=== PATIENT | male | born 1940 | race Caucasian/White ===

== ENCOUNTER 2020-01-05 10:24 | Outpatient (REF) | payer MEDICARE, OTHER, SELFPAY ==
--- NOTE | 2020-01-05 11:19 | XR_ITS ---
EXAMINATION: XR HIP, RIGHT CLINICAL INFORMATION: Right hip pain. COMPARISON: Right hip radiographs dated 12/03/2019. TECHNIQUE: Two views of the right hip. FINDINGS: The patient is status post right hip/femoral ORIF showing good anatomic alignment with no evidence for hardware malfunction. Mild right hip degenerative joint changes are again noted. The right hemipelvis is intact. The soft tissues are unremarkable. Generalized osteopenia is seen. IMPRESSION: Generalized osteopenia and mild right hip osteoarthritis. No hardware abnormality. No acute fracture. No significant change.
[2020-01-05 12:29] LABS: Alanine Aminotransferase 28 U/L (0-40); Albumin Level 4.5 g/dL (3.5-5.0); Alkaline Phosphatase 94 U/L (39-117); Anion Gap 12 (12-20); Aspartate Amino Transferase 23 U/L (5-37); Bilirubin Total 0.5 mg/dL (0.0-1.0); Blood Urea Nitrogen 13 mg/dL (9-16); Calcium 9.8 mg/dL (8.4-10.2); Carbon Dioxide 26 mmol/L (22-29); Chloride 109 mmol/L (96-108); Estimated Glomerular Filt Rate > 60; Glucose Fasting 118 mg/dL (60-99); Potassium 4.3 mmol/l (3.3-5.1); Sodium 143 mmol/L (135-145); Total Protein 7.5 g/dL (6.5-8.0)
[2020-01-05 18:13] LABS: Cholesterol 131 mg/dL; HDL Cholesterol 53 mg/dL; LDL Cholesterol Calculated 65 mg/dl; Triglycerides 66 mg/dL
== END 2020-01-05 10:25 | disposition home or self-care (01) ==
LOC: HO.LAB 10:24
PROVIDERS: Visit Provider Internal Medicine
DX: M25.551 Pain in right hip (principal)
CPT/HCPCS: 36415; 73502; 80053; 80061

== ENCOUNTER → 2020-01-28 10:10 | Outpatient (BNVA) | payer MEDICARE, OTHER, SELFPAY | PROVIDERS: PCP Internal Medicine; Visit Provider Urology | DX: N40.1 Benign prostatic hyperplasia with lower urinary tract symptoms (principal); R35.0 Frequency of micturition; R39.12 Poor urinary stream; R35.1 Nocturia; Z79.899 Other long term (current) drug therapy | CPT/HCPCS: 81002; 99202 ==

== ENCOUNTER 2020-01-29 15:58 | Outpatient (REF) | payer MEDICARE, OTHER, SELFPAY | END 2020-01-29 15:59 | disposition home or self-care (01) | LOC: HO.LAB 15:58 | PROVIDERS: Visit Provider Internal Medicine | DX: Z20.828 Contact with and (suspected) exposure to other viral communicable diseases (principal) | CPT/HCPCS: 87635 ==

== ENCOUNTER 2020-02-19 11:00 | Outpatient (RCR) | payer MEDICARE, OTHER, SELFPAY ==
--- NOTE | 2020-02-19 14:08 | MHC.PT.DC ---
[facility] [place] [facility] [place] [facility] [place] [facility] [address] Raysa Acuña [address] [phone] F: [phone] F: [phone] F: [phone] F: [phone] Physical Therapy Discharge Report Diagnosis: S/P RIGHT SILVIA RIGHT ROTATOR CUFF DYSFUNCTION Date of Surgery: 06/19/19 Date of Evaluation: 09/25/19 Date of Discharge: 02/19/20 Treatments to Date: 31 Cancellations to Date: 1 No Shows to Date: 0 Discharge Status: Achieved Goals Improved Function Independent with HEP Discharge Summary: 02/19/20- Pt came in with no new complaints. He has achieved all goals set for him and is independent with all HEPs. Pt d/c from therapy today. Pt was in agreement with plan. No adverse response noted to any exercise. Electronically signed by: Shania hCristiansen DPT Please sign and return to therapist. Thank you for your referral.
== END 2020-03-12 10:53 | disposition other institution (70) ==
LOC: HO.PT 11:00
PROVIDERS: Visit Provider Physician Assistant
DX: S72.141D Displaced intertrochanteric fracture of right femur, subsequent encounter for closed fracture with routine healing (principal); S46.011A Strain of muscle(s) and tendon(s) of the rotator cuff of right shoulder, initial encounter
CPT/HCPCS: 97110; 97530

== ENCOUNTER 2020-02-25 13:31 | Outpatient (REF) | payer MEDICARE, OTHER, SELFPAY ==
--- NOTE | 2020-02-25 13:33 | US_ITS ---
EXAMINATION: US PELVIS LIMITED (BLADDER) CLINICAL INFORMATION: Poor urinary stream. COMPARISON: CT abdomen and pelvis 06/18/2019. TECHNIQUE: Real-time imaging of the bladder. FINDINGS: The bladder is symmetrically distended with no focal wall thickening or bladder diverticulum. There is no debris or bladder calculus. Right ureteral jet is noted with color Doppler. Left ureteral jet is not demonstrated. Bladder volume (full per patient): 101 mL. Post void bladder residual volume: 9 mL. Prostate is normal in size measuring measures 3.0 x 2.7 x 3.0 cm (volume 13 mL). US/US bladder IMPRESSION: 1. Bladder volume (full per patient): 101 mL. 2. Small post void bladder volume: 9 mL. 3. Prostate normal in size, 13 mL.
== END 2020-02-25 13:32 | disposition home or self-care (01) ==
LOC: HO.US 13:31
PROVIDERS: Visit Provider Urology
DX: R39.12 Poor urinary stream (principal); N40.0 Benign prostatic hyperplasia without lower urinary tract symptoms; Z12.5 Encounter for screening for malignant neoplasm of prostate
CPT/HCPCS: 76857

== ENCOUNTER 2020-03-04 14:55 | Emergency (ER) | payer MEDICARE, BC, SELFPAY ==
[2020-03-04 15:42] VITALS: BP 115/77; PULSE 88; RESP 15; TEMP 37.2; O2SAT 98; BMI 29.2
--- NOTE | 2020-03-04 17:03 | XR_ITS ---
EXAMINATION: XR ABDOMEN KUB CLINICAL INDICATION: Constipated COMPARISON: 06/18/2019 TECHNIQUE: AP view of the abdomen. FINDINGS: There is a nonobstructive bowel gas pattern. No dilated loops of bowel. Gas and stool throughout the colon with mild to moderate colonic stool burden. Stool in the rectum. The lung bases are clear. Degenerative changes of the spine and hips. Partial visualization of fixation hardware in the right femur. XR/XR KUB IMPRESSION: Nonobstructive bowel gas pattern. Mild to moderate colonic stool burden.
--- NOTE | 2020-03-04 17:04 | ED.GENADULT ---
HPI - General Adult General Chief complaint: General Medical Stated complaint: catheter problem Time Seen by Provider: 03/04/20 16:46 Source: patient Mode of arrival: ambulatory Limitations: no limitations History of Present Illness HPI narrative: Patient with history of constipation complaining of soft stool coming but not emptying completely no abdominal pain no diarrhea no nausea no vomiting no fever he denies any fever no abdominal distension Onset (ago): day(s) (3) Related Data Home Medications Medication Instructions Recorded Confirmed acetaminophen 500 mg tablet 500 mg PO Q6H PRN 01/05/20 01/05/20 alfuzosin 10 mg tablet,extended 10 mg PO DAILY 01/05/20 01/05/20 release 24 hr aspirin 81 mg tablet,delayed 81 mg PO DAILY 01/05/20 01/05/20 release atorvastatin 40 mg tablet 40 mg PO DAILY 01/05/20 01/05/20 oxybutynin chloride 10 mg 10 mg PO DAILY 01/05/20 01/05/20 tablet,extended release 24 hr Previous Rx's Medication Instructions Recorded calcium carbonate 600 mg calcium 600 mg PO BID 30 Days #60 tab 01/22/20 (1,500 mg) tablet cholecalciferol (vitamin D3) 25 25 mcg PO DAILY 30 Days #30 cap 01/22/20 mcg (1,000 unit) capsule docusate sodium [Colace] 100 mg PO DAILY PRN #20 cap 03/04/20 hydrocortisone [Proctocort] 1 appl TOPICAL BID PRN #30 g 03/04/20 terazosin 10 mg capsule 10 mg PO BEDTIME #30 cap 03/04/20 Allergies Allergy/AdvReac Type Severity Reaction Status Date / Time No Known Allergies Allergy Verified 01/05/20 09:28 [No Known Allergies*] Review of Systems Review of Systems: REVIEW OF SYSTEMS: Pertinent positives and negatives are stated above in the history. GEN: no fevers, chills, fatigue HEENT: no nasal congestion, sore throat, ear pain NEURO: no headache, dizziness, focal weakness PULM: no cough, shortness of breath CV: no chest pain, palpitations, LE edema ABD: no abdominal pain, nausea, vomiting, diarrhea : no dysuria, urgency, frequency SKIN: no rash ROS otherwise negative x 10 PMFSH Past Medical History Medical History BPH (benign prostatic hyperplasia) Osteopenia Pure hypercholesterolemia Right hip pain Urinary incontinence due to benign prostatic hyperplasia Surgical History History of hip surgery Family History Family History Father No problems noted. Mother No problems noted. Social History Social History Alcohol intake: unknown Smoking Status: Unknown if ever smoked Use of substances other than those prescribed or required for medical reasons: No Advance Directives: No Advance Directives Information Provided: No Physical Exam Vital Signs: Vital Signs: Last Vital Signs Temp 99.0 F 03/04/20 15:42 Pulse 76 03/04/20 18:39 Resp 18 03/04/20 18:39 BP 109/63 03/04/20 18:39 Pulse Ox 99 03/04/20 18:39 Body Mass Index 29.2 Appearance: Alert. Oriented X3. No acute distress. Eyes: Pupils equal, round and reactive to light. ENT: Pharynx normal. Neck: Normal inspection. Neck supple. CVS: Normal heart rate and rhythm. Pulses normal. Respiratory: No respiratory distress. Breath sounds normal. Abdomen: Soft and nontender. Bowel sounds are present no hepatosplenomegaly Rectal exam: Soft well formed brown stool rectal tone is normal Skin: Skin warm and dry. Normal skin color. Normal skin turgor. Extremities: No lower extremity edema. Good range of movement Neuro: Oriented X 3. No motor deficit. No sensory deficit. Discharge Plan Discharge Clinical Impression: Constipation Qualifiers: Constipation type: slow transit constipation Qualified Code(s): K59.01 - Slow transit constipation Patient Disposition: Home, Self-Care Instructions: Constipation (ED) Additional Instructions: Drink Plenty of fluids Stool softener as advised Prescriptions: New docusate sodium [Colace] 100 mg capsule 100 mg PO DAILY PRN (Reason: constipation) Qty: 20 RF: 0 hydrocortisone [Proctocort] 1 % cream 1 appl topical BID PRN (Reason: itching) Qty: 30 RF: 0 No Action calcium carbonate 600 mg calcium (1,500 mg) tablet 600 mg PO BID 30 Days Qty: 60 RF: 11 cholecalciferol (vitamin D3) 25 mcg (1,000 unit) capsule 25 mcg PO DAILY 30 Days Qty: 30 RF: 11 terazosin 10 mg capsule 10 mg PO BEDTIME Qty: 30 RF: 6 oxybutynin chloride 10 mg tablet extended release 24hr 10 mg PO DAILY RF: 0 atorvastatin 40 mg tablet 40 mg PO DAILY RF: 0 alfuzosin 10 mg tablet extended release 24 hr 10 mg PO DAILY RF: 0 acetaminophen [Tylenol Extra Strength] 500 mg tablet 500 mg PO Q6H PRNRF: 0 aspirin 81 mg tablet,delayed release (DR/EC) 81 mg PO DAILY RF: 0 Interventions: ED Discharge Assessment Last Done: 03/04/20 19:20 Discharge Date/Time: 03/04/20 19:21 Print Language: Scottish
[2020-03-04] MEDS: bisacodyL 5 MG TABLET.DR 10 MG PO (17:36)
[2020-03-04] MEDS: Milk of Magnesia 30 ML ORAL.SUSP PO (17:36)
[2020-03-04 18:39] VITALS: BP 109/63; PULSE 76; RESP 18; O2SAT 99
== END 2020-03-04 19:21 | disposition home or self-care (01) ==
PROVIDERS: Emergency Provider Internal Medicine
DX: K59.01 Slow transit constipation (principal)
CPT/HCPCS: 74018; 99283; 99284

== ENCOUNTER → 2020-03-18 10:36 | Outpatient (BNVA) | payer MEDICARE, OTHER, SELFPAY | PROVIDERS: PCP Nurse Practitioner Family; Visit Provider Urology | DX: N40.1 Benign prostatic hyperplasia with lower urinary tract symptoms (principal); R35.1 Nocturia; R39.15 Urgency of urination | CPT/HCPCS: Q3014 ==

== ENCOUNTER 2020-12-31 09:49 | Emergency (ER) | payer MEDICARE, BC, SELFPAY ==
--- NOTE | ~2020-12-31 | XR_ITS ---
EXAMINATION: XR HAND, RIGHT CLINICAL INFORMATION: Fall, trauma, pain COMPARISON: None TECHNIQUE: PA, lateral, and oblique views of the right hand. FINDINGS: There is mild osteopenia. There is no visible fracture, dislocation, destructive process. The ulnar variance is neutral. There is no focal joint narrowing or erosive change. There is some atherosclerotic calcifications vasculature. XR/XR hand RT 2V IMPRESSION: No visible fracture or dislocation.
[2020-12-31 09:55] VITALS: BP 112/60; PULSE 86; RESP 16; TEMP 36.8; O2SAT 95; BMI 29.2
--- NOTE | 2020-12-31 10:40 | ED.FALL ---
HPI - Fall General Chief Complaint: Extremity Problem Stated Complaint: rt hand pain Time Seen by Provider: 12/31/20 10:40 Source: patient Mode of arrival: ambulatory Limitations: no limitations History of Present Illness HPI Narrative: 80 y/o male presenting to the ER with right hand pain that started last night at 5pm after he tripped and fell onto his hand. He reports stepping up one step outside without using his cane and he fell. He fell onto his left forearm and right hand. He did not hit his head or lose consciousness. He reports the pain in his right hand woke him up out of sleep. He reports the pain is located in the proximal hand near the wrist. It is swollen. He has not taken any medications for pain. He denies numbness or tingling. MD complaint: fall Onset (ago): day(s) (1) Fall from: standing Fall witnessed: yes, by family Place fall occurred: home Loss of consciousness: none Prolonged down time: no Symptoms prior to fall: none Context: tripped/slipped Location of injury - extremities: left: forearm and right: hand Severity: severe Severity scale (1-10): 10 Quality: sharp and aching Associated symptoms (after fall): denies Related Data Home Medications Medication Instructions Recorded Confirmed acetaminophen 500 mg tablet 500 mg PO Q6H PRN 01/05/20 01/05/20 (Tylenol Extra Strength) alfuzosin 10 mg tablet,extended 10 mg PO DAILY 01/05/20 01/05/20 release 24 hr aspirin 81 mg tablet,delayed 81 mg PO DAILY 01/05/20 01/05/20 release atorvastatin 40 mg tablet 40 mg PO DAILY 01/05/20 01/05/20 oxybutynin chloride 10 mg 10 mg PO DAILY 01/05/20 01/05/20 tablet,extended release 24 hr calcium carbonate 600 mg calcium 600 mg PO BID 03/08/20 (1,500 mg) tablet (Calcium) cholecalciferol (vitamin D3) 100 1,000 mcg PO DAILY cap 03/08/20 mcg (4,000 unit) capsule (Vitamin D3) Previous Rx's Medication Instructions Recorded calcium carbonate 600 mg calcium 600 mg PO BID 30 Days #60 tab 01/22/20 (1,500 mg) tablet cholecalciferol (vitamin D3) 25 25 mcg PO DAILY 30 Days #30 cap 10/22/20 mcg (1,000 unit) capsule docusate sodium 100 mg capsule 100 mg PO DAILY PRN #20 cap 03/04/20 (Colace) hydrocortisone 1 % topical cream 1 appl TOPICAL BID PRN #30 g 03/04/20 (Proctocort) meclizine 25 mg tablet 25 mg PO DAILY PRN #30 tab 03/08/20 polyethylene glycol 3350 17 17 g PO DAILY PRN #119 g 03/08/20 gram/dose oral powder (Miralax) bisacodyl 10 mg/30 mL enema (Fleet 10 mg FL ONCE PRN #30 ml 03/12/20 Bisacodyl) terazosin 10 mg capsule 10 mg PO BEDTIME #30 cap 03/18/20 ibuprofen 600 mg tablet 600 mg PO Q8H PRN #7 tab 12/31/20 tramadol 50 mg tablet 50 mg PO BID PRN #5 tab 12/31/20 Allergies Allergy/AdvReac Type Severity Reaction Status Date / Time No Known Allergies Allergy Verified 04/27/20 07:34 [No Known Allergies*] Review of Systems Review of Systems: Constitutional: No Fever, No Chills Cardiovascular: No Chest Pain, No SOB Gastrointestinal: No Nausea, No Vomiting, No abdominal Pain Musculoskeletal: + joint pain, No Myalgias Skin: + Skin Lesions, No rash Neuro: No Weakness, No Numbness, No Dizziness, No Headache Heme/Lymph: No Bruising, No Lymphadenopathy PMFSH Past Medical History Medical History (Updated 12/31/20 @ 11:07 by TIMOTEO Jaime) BPH (benign prostatic hyperplasia) Colonoscopy planned Constipation Osteopenia Pure hypercholesterolemia Right hip pain Stool incontinence Urinary incontinence due to benign prostatic hyperplasia Vertigo Surgical History History of hip surgery Family History Family History Father No problems noted. Mother No problems noted. Social History Social History Alcohol intake: unknown Advance Directives: No Physical Exam Vital Signs: Vital Signs: Last Vital Signs Temp 98.2 F 12/31/20 09:55 Pulse 86 12/31/20 09:55 Resp 16 12/31/20 09:55 BP 112/60 12/31/20 09:55 Pulse Ox 95 12/31/20 09:55 Body Mass Index 29.2 Appearance: Alert. Oriented X3. No acute distress. HEENT: normal inspection CVS: Normal heart rate and rhythm. Pulses normal. Respiratory: No respiratory distress. Skin: Skin warm and dry. Normal skin color. Normal skin turgor. No rashes. Extremities: right dorsal hand with mild swelling, tenderness over proximal hand without crepitus, no ecchymosis, no scaffoid tenderness, normal automotive parts counter person strength, normal active and passive ROM of the right wrist, NV intact distally. Neuro: Oriented X 3. No motor deficit. No sensory deficit. Course Course Course Narrative: 80 y/o male presenting with right hand pain s/p mechanical fall last evening. Slight swelling of dorsal hand with tenderness proximally, possible hand fracutre vs sprain. No snuff box tenderness. XR pending . Reevaluation(s) Reevaluation #1: XR negative for acute fracture. Will treat for sprain and have him follow up with his doctor. Stable for d/c home. Discharge Plan Discharge Clinical Impression: Sprain of wrist, right Qualifiers: Encounter type: initial encounter Qualified Code(s): S63.501A - Unspecified sprain of right wrist, initial encounter Patient Disposition: Home, Self-Care Instructions: Wrist Sprain (ED) Additional Instructions: Your xx-ray today was normal. Recommend wearing the MARCELLO wrap for support and compression. Elevate your hand whenever possible and use ice several times per day. Take the prescribed medications as needed for pain. Tramadol is a narcotic medication - it can make you drowsy, do not drive after taking this medication. Use your cane at all times when you are walking. Follow up with your doctor. Prescriptions: New ibuprofen 600 mg tablet 600 mg PO Q8H PRN (Reason: pain) Qty: 7 RF: 0 tramadol 50 mg tablet 50 mg PO BID PRN (Reason: pain) Qty: 5 RF: 0 No Action calcium carbonate 600 mg calcium (1,500 mg) tablet 600 mg PO BID 30 Days Qty: 60 RF: 11 cholecalciferol (vitamin D3) 25 mcg (1,000 unit) capsule 25 mcg PO DAILY 30 Days Qty: 30 RF: 11 docusate sodium [Colace] 100 mg capsule 100 mg PO DAILY PRN (Reason: constipation) Qty: 20 RF: 0 hydrocortisone [Proctocort] 1 % cream 1 appl topical BID PRN (Reason: itching) Qty: 30 RF: 0 oxybutynin chloride 10 mg tablet extended release 24hr 10 mg PO DAILY RF: 0 atorvastatin 40 mg tablet 40 mg PO DAILY RF: 0 alfuzosin 10 mg tablet extended release 24 hr 10 mg PO DAILY RF: 0 acetaminophen [Tylenol Extra Strength] 500 mg tablet 500 mg PO Q6H PRNRF: 0 aspirin 81 mg tablet,delayed release (DR/EC) 81 mg PO DAILY RF: 0 calcium carbonate [Calcium 600] 600 mg calcium (1,500 mg) tablet 600 mg PO BID RF: 0 Vitamin D3 100 mcg (4,000 unit) capsule 1,000 mcg PO DAILY RF: 0 polyethylene glycol 3350 [Miralax] 17 gram/dose powder 17 g PO DAILY PRN (Reason: constipation) Qty: 119 RF: 0 meclizine 25 mg tablet 25 mg PO DAILY PRN (Reason: motion sickness) Qty: 30 RF: 0 Fleet Bisacodyl 10 mg/30 mL enema 10 mg FL ONCE PRN (Reason: constipation) Qty: 30 RF: 0 terazosin 10 mg capsule 10 mg PO BEDTIME Qty: 30 RF: 6 Referrals: Sarah Pendleton MD [Primary Care Provider] - 3 days Interventions: ED Discharge Assessment Last Done: 12/31/20 11:15 Discharge Date/Time: 12/31/20 11:16 Print Language: Welsh
== END 2020-12-31 11:16 | disposition home or self-care (01) ==
PROVIDERS: Emergency Provider Emergency Medicine; PCP Internal Medicine
DX: S63.501A Unspecified sprain of right wrist, initial encounter (principal); M25.531 Pain in right wrist; W01.0XXA Fall on same level from slipping, tripping and stumbling without subsequent striking against object, initial encounter; Y93.9 Activity, unspecified; Y92.9 Unspecified place or not applicable; Y99.9 Unspecified external cause status; Z79.899 Other long term (current) drug therapy
CPT/HCPCS: 73120; 99283

== ENCOUNTER → 2021-02-08 10:13 | Outpatient (BNVA) | payer MEDICARE, OTHER, SELFPAY | PROVIDERS: PCP Internal Medicine; Visit Provider Urology | DX: R39.15 Urgency of urination (principal); R35.1 Nocturia; N32.0 Bladder-neck obstruction | CPT/HCPCS: 51798; 99212 ==

== ENCOUNTER 2021-02-18 09:43 | Outpatient (REF) | payer MEDICARE, BC, SELFPAY ==
--- NOTE | ~2021-02-18 | XR_ITS ---
EXAMINATION: XR HIP, RIGHT CLINICAL INFORMATION: Pain. COMPARISON: 01/05/2020. TECHNIQUE: AP view of the pelvis and 2 views of the right hip were obtained. FINDINGS: Redemonstration of a dynamic hip screw and intramedullary femoral ayanna without evidence of hardware failure or malalignment. Unchanged displaced greater and lesser trochanteric fracture fragments. Femoral heads are well-seated in the acetabula. No new injuries. Mild to moderate bilateral osteoarthritis in both hips. XR/XR hip RT w PEL1V IMPRESSION: No hardware failure. No acute fracture. No significant interval change.
== END 2021-02-18 09:44 | disposition home or self-care (01) ==
LOC: HO.HOSX 09:43
PROVIDERS: Visit Provider Physician Assistant
DX: M70.61 Trochanteric bursitis, right hip (principal); M54.10 Radiculopathy, site unspecified; M54.50 Low back pain, unspecified
CPT/HCPCS: 20610; 73502; 99212; J1040

== ENCOUNTER 2021-03-11 10:46 | Outpatient (REF) | payer MEDICARE, OTHER, SELFPAY ==
--- NOTE | ~2021-03-11 | XR_ITS ---
EXAMINATION: XR FEMUR, RIGHT CLINICAL INFORMATION: Postprocedure COMPARISON: 02/18/2021 TECHNIQUE: AP and lateral views of the right femur were obtained. FINDINGS: No change in position of fracture fragments about the left hip. The hardware is unchanged in position. There is no evidence for hardware failure. Silviano extends to the femur. XR/XR femur RT 2V IMPRESSION: No change position of silviano and screw associated with the right hip. No acute finding.
== END 2021-03-11 10:47 | disposition home or self-care (01) ==
LOC: HO.HOSX 10:46
PROVIDERS: PCP Internal Medicine; Visit Provider Orthopaedic Surgery
DX: M25.551 Pain in right hip (principal); Z98.890 Other specified postprocedural states
CPT/HCPCS: 73552; 99212

== ENCOUNTER 2021-04-06 09:41 | Day surgery (SDC) | payer MEDICARE, BC, SELFPAY ==
--- NOTE | 2021-04-05 09:34 | P.CONAN_ITS ---
Documented by User: Shadia Mcgee NP 04/05/21 09:40 HPI - Anesthesia Eval Consult details Narrative: 80yo M for Right Removal Orthopedic Hip Hardware s/p gamma nailing 05/2020 with GA-LMA 5 PMFSH Active Problems Active Problems: All Active Problems (Updated 03/17/21 @ 12:19 by Antonio Keyes MD) Retained orthopedic hardware (Acute) History of hip surgery (Acute) Greater trochanteric bursitis of right hip (Acute) Radiculopathy (Acute) Low back pain (Acute) Bladder outlet obstruction (Acute) Urinary urgency (Acute) Nocturia more than twice per night (Acute) Stool incontinence (Acute) Colonoscopy planned (Acute) Vertigo (Acute) Constipation (Acute) Osteopenia (Acute) BPH (benign prostatic hyperplasia) (Acute) Urinary incontinence due to benign prostatic hyperplasia (Acute) Pure hypercholesterolemia (Acute) Right hip pain (Acute) Past Medical History Medical History BPH (benign prostatic hyperplasia) Colonoscopy planned Constipation Osteopenia Pure hypercholesterolemia Right hip pain Stool incontinence Urinary incontinence due to benign prostatic hyperplasia Vertigo Family History Family History Father No problems noted. Mother No problems noted. Surgical History Surgical History (Updated 04/06/21 @ 10:22 by Preethi Ivey RN) History of hip surgery Hx of bilateral cataract extraction Social History Social History (Updated 03/11/21 @ 12:26 by Jamari Banegas) Alcohol intake: unknown Patient Tobacco Use Status: Never used Tobacco Use of substances other than those prescribed or required for medical reasons: No Are you DNR?: No Advance Directives: No Advance Directives Information Provided: Yes Current occupational status: retired Current occupation: rt handed Meds Allergies Allergy/AdvReac Type Severity Reaction Status Date / Time No Known Allergies Allergy Verified 04/06/21 10:22 [No Known Allergies*] Home Medications Medication Instructions Recorded Confirmed Last Taken Type acetaminophen 500 mg tablet 500 mg PO Q6H PRN 01/05/20 02/08/21 Unknown History (Tylenol Extra Strength) aspirin 81 mg tablet,delayed 81 mg PO DAILY 01/05/20 02/08/21 Unknown History release atorvastatin 40 mg tablet 40 mg PO DAILY 01/05/20 02/08/21 Unknown History calcium carbonate 600 mg calcium 600 mg PO BID 03/08/20 02/08/21 Unknown History (1,500 mg) tablet (Calcium) cholecalciferol (vitamin D3) 100 1,000 mcg PO DAILY cap 03/08/20 02/08/21 Unknown History mcg (4,000 unit) capsule (Vitamin D3) cholecalciferol (vitamin D3) 25 25 mcg PO DAILY 02/08/21 02/08/21 Unknown History mcg (1,000 unit) tablet (Vitamin D3) ipratropium bromide 42 mcg (0.06 INTRANASAL 02/08/21 02/08/21 Unknown History %) nasal spray Exam Exam Date and Time: April 05, [id number] Assessment and Plan Assessment Anesthesia Assessment: Chart Reviewed Documented by User: Alfredo Bliss MD 04/06/21 11:34 [facility] Past Medical History Medical History BPH (benign prostatic hyperplasia) Colonoscopy planned Constipation Osteopenia Pure hypercholesterolemia Right hip pain Stool incontinence Urinary incontinence due to benign prostatic hyperplasia Vertigo Family History Family History Father No problems noted. Mother No problems noted. Family history of problems with anesthesia: No Surgical History Surgical History (Updated 04/06/21 @ 10:22 by Preethi Ivey RN) History of hip surgery Hx of bilateral cataract extraction History of Problems with Anesthesia: No Social History Social History (Updated 03/11/21 @ 12:26 by Jamari Banegas) Alcohol intake: unknown Patient Tobacco Use Status: Never used Tobacco Use of substances other than those prescribed or required for medical reasons: No Are you DNR?: No Advance Directives: No Advance Directives Information Provided: Yes Current occupational status: retired Current occupation: rt handed Meds Allergies Allergy/AdvReac Type Severity Reaction Status Date / Time No Known Allergies Allergy Verified 01/05/22 10:22 [No Known Allergies*] Home Medications Medication Instructions Recorded Confirmed Last Taken Type acetaminophen 500 mg tablet 500 mg PO Q6H PRN 01/05/20 02/08/21 Unknown History (Tylenol Extra Strength) aspirin 81 mg tablet,delayed 81 mg PO DAILY 01/05/20 02/08/21 Unknown History release atorvastatin 40 mg tablet 40 mg PO DAILY 01/05/20 02/08/21 Unknown History calcium carbonate 600 mg calcium 600 mg PO BID 03/08/20 02/08/21 Unknown History (1,500 mg) tablet (Calcium) cholecalciferol (vitamin D3) 100 1,000 mcg PO DAILY cap 03/08/20 02/08/21 Unknown History mcg (4,000 unit) capsule (Vitamin D3) cholecalciferol (vitamin D3) 25 25 mcg PO DAILY 02/08/21 02/08/21 Unknown History mcg (1,000 unit) tablet (Vitamin D3) ipratropium bromide 42 mcg (0.06 INTRANASAL 02/08/21 02/08/21 Unknown History %) nasal spray Exam Airway Mallampati Class: II TM Dist: >3cm Neck ROM: Full Loose/Missing/Broken Teeth: No Heart: [id number] Lungs: cta b/l Assessment and Plan Assessment Anesthesia Assessment: Anesthesia Plan Discussed Final Anesthetic Review Family History of Problems with Anesthesia: No History of Problems with Anesthesia: No NPO: Yes ASA Class: III Final Preanesthetic Review: No Changes in Pt Med Stat, Meds/Allgs Chart Reviewed, Consent Obtained/Reviewed and Anes Risks/Benef Reviewed Patient Risk: Intermediate Procedure Risk: Intermediate Assessment/Block/Sedation in SS: Assess/Block/Sedation-SS Anesthetic Plan Anesthetic Plan: GA and Agree w/ Assess. and Plan Disposition: Standard PACU
[2021-04-06] VITALS (11 sets, daily range): BP systolic 119–133; BP diastolic 62–80; PULSE 66–77; RESP 16–20; TEMP 36.6–36.9; O2SAT 92–99; BMI 29.2
--- NOTE | ~2021-04-06 | FL_ITS ---
EXAMINATION: XR FL WITH IMAGES CLINICAL INFORMATION: Removal of orthopedic hardware, right hip. COMPARISON: 03/11/2021 TECHNIQUE: Fluoroscopy performed by Dr. Antonio Keyes. Fluoroscopy Time: 0.8 minutes. DAP: 0.423 mGycm2. Images: 2. FINDINGS: 2 intraoperative C-arm views provided. Since previous study, the screw within the right femoral neck has been removed. The proximal portion of the medullary ayanna is included on imaging and remains in place. No change in hypertrophic bone and healed fracture appearance. FL/FL guidance in OR IMPRESSION: Removal of right femoral neck screw.
--- NOTE | 2021-04-06 10:41 | MHC.SHP ---
Pre-Procedural Eval Section A Date of Service: 04/06/21 The patient is an INPATIENT: No Changes since office visit: Yes Patient answered all questions; No Cold of Flu in the past 2 weeks, No New Medical Problems and No Changes in Medication The History & Physical has been completed within 30 days and I have reviewed it.: Yes Section B Chief Complaint: Other post procedural states Allergies: Allergies Allergy/AdvReac Type Severity Reaction Status Date / Time No Known Allergies Allergy Verified 04/06/21 10:22 [No Known Allergies*] Plan I have reviewed the history and physical and performed a pertinent physical examination on my patient. No changes have occurred unless specified.
[2021-04-06] MEDS: Lactated Ringers 1,000 ML 100 ML IVCONT (10:43)
--- NOTE | 2021-04-06 12:03 | PM.OP ---
Brief Operative Note Date of Service: 04/06/21 Pre-op diagnosis: Retained orthopaedic hardware right hip Post-op diagnosis: same Procedure: removal of hardware right hip Surgeon: Antonio Keyes MD Anesthesia: GETA and local Was an Pets Salesperson used for this Procedure?: Yes Pets Salesperson: Sophie Murphy Estimated blood loss (mL): 50 IV fluids (mL): 800 Pathology: none sent Condition: stable Disposition: PACU
--- NOTE | 2021-04-06 13:30 | PC.NURSE ---
while assessing wound prior to discharge this RN noted the right hip distal dressing was off and saturated with blood and hematoma developing. New dressing and Ice applied. Dr. Edgar and Sophie MAHMOOD notified. MARCELLO wrap applied for pressure will continue to monitor.
--- NOTE | 2021-04-13 11:59 | P.OP_ITS ---
Operative Note Operative Note Date of Service: 04/06/21 Narrative: Date of Service: 04/06/21 Pre-op diagnosis: Retained orthopaedic hardware right hip Post-op diagnosis: same Procedure: removal of hardware right hip Surgeon: Antonio Keyes MD Anesthesia: GETA and local Was an Furnace Charging Machine Operator used for this Procedure?: Yes Furnace Charging Machine Operator: Sophie Murphy Estimated blood loss (mL): 50 IV fluids (mL): 800 Pathology: none sent Condition: stable Disposition: PACU Patient was brought to the operating room and placed supine on the surgical table. The limb was prepped and draped in standard sterile fashion and a time out was called to identify proper site, proper procedure and IV antibiotics per weight were administered. I began by making a small sivakumar incision over the lateral femur. A Megan clamp was used to spread the soft tissues overlying the prominent lateral hip screw. I then placed a screwdriver and with biplanar fluoroscopy was able to engage the screwdriver and the hip screw threads and this was locked in place. I was unable to remove the screw though as set screw was in place OA incision was made proximal to the nail and again blunt dissection was taken down to the nail and a flexible screwdriver was placed in this set screw was engaged and then unscrewed partially in till I was able to remove the hip screw. The hip screw was removed without difficulty. I then obtained biplanar fluoroscopic views and took the hip through range of motion was satisfied that this was fully healed. I then irrigated copiously and closed the incisions with absorbable 2-0 Vicryl and aster. Patient was placed in sterile dressing extubated brought to recovery room in stable condition. There were no known complications.
== END 2021-04-06 15:12 | disposition home or self-care (01) ==
PROVIDERS: PCP Internal Medicine; Visit Provider Orthopaedic Surgery
PROC: (CPT 20680; principal; 2021-04-06 11:50)
DX: T84.84XA Pain due to internal orthopedic prosthetic devices, implants and grafts, initial encounter (principal); M25.551 Pain in right hip; Y79.3 Surgical instruments, materials and orthopedic devices (including sutures) associated with adverse incidents; Y92.9 Unspecified place or not applicable; Z96.9 Presence of functional implant, unspecified; Z98.890 Other specified postprocedural states; R26.2 Difficulty in walking, not elsewhere classified; Z87.81 Personal history of (healed) traumatic fracture; M85.80 Other specified disorders of bone density and structure, unspecified site; E78.00 Pure hypercholesterolemia, unspecified; N40.1 Benign prostatic hyperplasia with lower urinary tract symptoms; N39.498 Other specified urinary incontinence; R42 Dizziness and giddiness
CPT/HCPCS: 20680; C1713; J0690; J1100; J1170; J2405; J3010

== ENCOUNTER → 2021-04-14 09:55 | Outpatient (BNVA) | payer MEDICARE, OTHER, SELFPAY | PROVIDERS: PCP Internal Medicine; Visit Provider Physician Assistant | DX: M12.811 Other specific arthropathies, not elsewhere classified, right shoulder (principal); Z96.9 Presence of functional implant, unspecified | CPT/HCPCS: 99212 ==

== ENCOUNTER → 2021-04-20 13:01 | Outpatient (BNVA) | payer MEDICARE, OTHER, SELFPAY | PROVIDERS: PCP Internal Medicine; Visit Provider Anesthesiology | DX: M25.551 Pain in right hip (principal); Z96.9 Presence of functional implant, unspecified | CPT/HCPCS: 99202 ==

== ENCOUNTER 2021-04-25 13:46 | Outpatient (REF) | payer MEDICARE, OTHER, SELFPAY | END 2021-04-25 13:47 | disposition home or self-care (01) | LOC: HO.MRI 13:46 | PROVIDERS: Visit Provider Physician Assistant | DX: Z13.89 Encounter for screening for other disorder (principal) ==

== ENCOUNTER → 2021-05-16 12:57 | Outpatient (BNVA) | payer MEDICARE, OTHER, SELFPAY | PROVIDERS: PCP Internal Medicine; Visit Provider Orthopaedic Surgery | DX: M12.811 Other specific arthropathies, not elsewhere classified, right shoulder (principal) | CPT/HCPCS: 99212 ==

== ENCOUNTER 2021-06-27 12:00 | Outpatient (RCR) | payer MEDICARE, OTHER, SELFPAY ==
--- NOTE | 2021-06-07 15:09 | MHC.PT.EP ---
[facility] [place] Office [place] Office [place] Office [address] Rays[place] Acuña [address] [phone] F: [phone] F: [phone] F: [phone] F: [phone] Physical Therapy Plan of Care Date of Evaluation: Date of Surgery: N/A Diagnosis: right shoulder rotator cuff arthropathy Assessment: pt presents to physical therapy after a mechanical fall resulting in a complete supraspinatus tear of his dominant arm. He would like to pursue non-operative management at this time to see if he can improve his function. I discussed w/ the pt that he most likely will not regain much motion of his arm given the nature of his tear. Realistic expectations were attempted to be set w/ the pt; however, he did not verbalized understanding. pt presents to physical therapy with pain, decreased range of motion, decreased strength, impaired functional mobility, impaired postural awareness, and gait deviations. pt is a fair candidate for skilled PT due to age, potential remediation of impairments, typical disease/condition progression and prognosis, comorbidities, and motivation. pt would benefit from tailored strengthening and stretching exercise program, functional training, gait training, postural re-training, neuromuscular re-education, modalities as needed for pain, equipment safety demonstration. Frequency and Duration: The patient will be seen 2x/wk for 6 wks Short Term Goals: pt will be I w/ HEP to promote self-management of condition. pt will improve R shoulder flexion by 10 degrees to promote ease in reaching for cooking utensils in higher cabinets for meal prep. Professor Of Violin Goals: pt will improve R shoulder functional ER to at least top of head to promote ease and independence w/ ADLs. pt will be I w/ donning/doffing shirt/jacket to reduce caregiver burden and promote independence. Treatment Plan: Modalities to reduce pain, spasms and effusion. Manual therapy to restore motion and function. Therapeutic exercise to improve strength and flexibility. Neuromuscular re-education for posture and balance. Therapeutic activities to return to functional activities of daily living. Electronically signed by: Eufemia Ballard PT, DPT Please sign and return to therapist. Thank you for your referral.
--- NOTE | 2021-07-27 13:38 | MHC.PT.DC ---
[facility] [place] Office [place] Office [place] Office [address] [place]ays[place] Acuña [address] [facility] [phone] F: [phone] F: [phone] F: [phone] F: [phone] Physical Therapy Discharge Report Diagnosis: right shoulder rotator cuff arthropathy Date of Surgery: N/A Date of Evaluation: 06/07/21 Date of Discharge: 07/27/21 Treatments to Date: 7 Cancellations to Date: 4 No Shows to Date: 1 Discharge Status: Recommend MD Follow-up Discharge Summary: The patient was reporting an improvement in his shoulder pain and active range of motion. 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 He missed his last scheduled appointments so a call was made to him. He was hospitalized in [place] as of earlier this week. He is discharged from this physical therapy plan of care due to change in status. Electronically signed by: Euefmia Ballard PT, DPT Please sign and return to therapist. Thank you for your referral.
== END 2021-07-27 13:38 | disposition home or self-care (01) ==
LOC: HO.PT 12:00
PROVIDERS: PCP Internal Medicine; Visit Provider Orthopaedic Surgery
DX: M12.811 Other specific arthropathies, not elsewhere classified, right shoulder (principal)
CPT/HCPCS: 97110; 97162

== ENCOUNTER → 2021-06-27 13:15 | Outpatient (BNVA) | payer MEDICARE, OTHER, SELFPAY | PROVIDERS: Visit Provider Physician Assistant | DX: M25.551 Pain in right hip (principal); Z96.9 Presence of functional implant, unspecified | CPT/HCPCS: 99212 ==

== ENCOUNTER 2021-08-04 06:54 | Outpatient (REF) | payer MEDICARE, OTHER, SELFPAY ==
--- NOTE | ~2021-08-04 | XR_ITS ---
EXAMINATION: XR PELVIS CLINICAL INFORMATION: Right hip pain. COMPARISON: 03/11/2021 right femoral radiographs. TECHNIQUE: AP view of the pelvis. FINDINGS: The patient is status post right femoral ORIF showing good anatomic alignment and no evidence for hardware malfunction of the femoral intramedullary nail proximal aspect. The femoral neck nail has been removed. Mildly displaced greater trochanter and lesser trochanter osseous fragments are again seen. The bony pelvis is intact. XR/XR pelvis 1-2V IMPRESSION: No hardware abnormality. No acute fracture.
== END 2021-08-04 06:55 | disposition home or self-care (01) ==
LOC: HO.HOSX 06:54
PROVIDERS: Visit Provider Orthopaedic Surgery
DX: T84.84XA Pain due to internal orthopedic prosthetic devices, implants and grafts, initial encounter (principal); Z96.9 Presence of functional implant, unspecified
CPT/HCPCS: 72170; 99212

== ENCOUNTER 2021-08-24 13:00 | Outpatient (RCR) | payer MEDICARE, OTHER, SELFPAY ==
--- NOTE | 2021-08-11 15:13 | MHC.PT.EP ---
[facility] [place] Office [place] Office [place] Office [address] Raysa Acuña [address] [phone] F: [phone] F: [phone] F: [phone] F: [phone] Physical Therapy Plan of Care Date of Evaluation: Date of Surgery: NA Diagnosis: Other specific arthropathies, not elsewhere classified, R shoulder Assessment: Dann is a 81 year old male who is referred to PT for Other specific arthropathies, not elsewhere classified, R shoulder . He reports of having shoulder pain for the last 2 years. His pain started following a fall about 2 years back. He has had PT in the past but has had no significant improvement. He also has not been complaint with HEP. On PT examination he presents with 0/10 pain at rest, 3/10 pain with movements, TTP over anterior shoulder joint line- supraspinatus tendon, decreased shoulder ROM, decreased shoulder and scap strength, altered GH rhythm, and altered posture. He is independent with self care activities but his does all IADLS. He would benefit from skilled PT to address the aforementioned impairments and improve tolerance to functional activities. Frequency and Duration: The patient will be seen 2/week for 4 weeks Short Term Goals: 1. Pt will demonstrate initiation of HEP in 2 weeks 2.Pt will have 50% decrease in pain which will help him sleep on R side in 2 weeks. Halfway Goals: 1. Pt will be able to move shoulder through all planes of motion with pain no more than 1/10 so as to be able to perform ADLs in 3 weeks. 2. Pt will be independent with HEP for symptom management and maintenance following d/c in 4 weeks. Treatment Plan: Modalities to reduce pain, spasms and effusion. Manual therapy to restore motion and function. Therapeutic exercise to improve strength and flexibility. Neuromuscular re-education for posture and balance. Therapeutic activities to return to functional activities of daily living. Electronically signed by: Shania Christiansen PT DPT Please sign and return to therapist. Thank you for your referral.
--- NOTE | 2021-09-29 10:20 | MHC.PT.DC ---
[facility] [place] Office [place] Office [place] Office [address] [phone] F: [phone] F: [phone] F: [phone] F: [phone] Physical Therapy Discharge Report Diagnosis: Other specific arthropathies, not elsewhere classified, R shoulder Date of Surgery: NA Date of Evaluation: 08/11/21 Date of Discharge: 09/29/21 Treatments to Date: 5 Cancellations to Date: 0 No Shows to Date: 0 Discharge Status: Patient Elected to Stop Visit Non-compliance Discharge Summary: Dann did not come to PT after 5 visits. He is therefore being d/c from PT for non compliance. Electronically signed by: Shania Christiansen PT DPT Please sign and return to therapist. Thank you for your referral.
== END 2021-09-29 10:21 | disposition home or self-care (01) ==
LOC: HO.PT 13:00
PROVIDERS: PCP Internal Medicine; Visit Provider Orthopaedic Surgery
DX: M12.811 Other specific arthropathies, not elsewhere classified, right shoulder (principal)
CPT/HCPCS: 97110; 97112; 97140; 97161